=== PATIENT | male | born 1975 | race African-American/Black ===

== ENCOUNTER 2016-10-03 01:00 | Emergency (ER) | payer MEDICAID ==
[2016-10-03] MEDS ORDERED: LORAZEPAM INJ 2 MG/1 ML VIAL IM ONE ×2 (01:18→23:59)
[2016-10-03] MEDS ORDERED: DIPHENHYDRAMINE HCL 50 MG/ML VIAL IM ONE ×2 (01:18→23:59)
[2016-10-03] MEDS ORDERED: HALOPERIDOL LACTATE INJ 5 MG/1 ML VIAL IM ONE ×2 (01:18→23:59)
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
[2016-10-03 02:08] LABS: ABSOLUTE EOSINOPHILS # (AUTO) 0.3 10^3/uL (0.0-0.6); ABSOLUTE LYMPHOCYTES (AUTO) 1.5 10^3/uL (0.5-4.7); ABSOLUTE MONOCYTES (AUTO) 0.6 10^3/uL (0.1-1.4); ABSOLUTE NEUT (AUTO) 3.1 10^3/uL (1.7-8.2); BASOPHILS % (AUTO) 0.7 % (0-2); HEMATOCRIT 39.6 % (37.9-51.0); HEMOGLOBIN 13.4 g/dL (13.5-17.0); HGB HCT DIFFERENCE 0.6; LYMPHOCYTES % (AUTO) 27.2 % (13-45); MEAN CORPUSCULAR HEMOGLOBIN 28.4 pg (27.0-33.4); MEAN CORPUSCULAR HGB CONC 33.9 g/dL (32.0-36.0); MEAN CORPUSCULAR VOLUME 84 fl (80-97); MONOCYTES % (AUTO) 11.5 % (3-13); RED BLOOD COUNT 4.73 10^6/uL (4.35-5.55); RED CELL DISTRIBUTION WIDTH 14.9 % (11.5-14.0); SEGMENTED NEUTROPHILS % (AUTO) 55.6 % (42-78); WHITE BLOOD COUNT 5.5 10^3/uL (4.0-10.5)
[2016-10-03 02:20] LABS: ALANINE AMINOTRANSFERASE 39 U/L (21-72); ALBUMIN 3.7 g/dL (3.5-5.0); ALKALINE PHOSPHATASE 48 U/L (38-126); ANION GAP 9 (5-19); ASPARTATE AMINO TRANSFERASE 32 U/L (17-59); BILIRUBIN,DIRECT 0.1 mg/dL (0.0-0.4); BILIRUBIN,TOTAL 0.3 mg/dL (0.2-1.3); BLOOD UREA NITROGEN 12 mg/dL (7-20); CALCIUM 8.8 mg/dL (8.4-10.2); CARBON DIOXIDE 27 mmol/L (22-30); CHLORIDE 108 mmol/L (98-107); CREATININE RESULT 0.81 mg/dL (0.52-1.25); GLUCOSE 124 mg/dL (75-110); POTASSIUM 4.5 mmol/L (3.6-5.0); TOTAL PROTEIN 5.9 g/dL (6.3-8.2)
[2016-10-03 02:25] LABS: ALCOHOL < 10 mg/dL (NONE DETECTED)
--- NOTE | 2016-10-03 10:23 | EKG REPORT ---
SEVERITY:- ABNORMAL ECG - SINUS RHYTHM PROBABLE LEFT VENTRICULAR HYPERTROPHY ST ELEVATION SUGGESTS PERICARDITIS : Confirmed by: Millicent Vazquez 03-Oct-2016 10:23:38
[2016-10-03 12:32] LABS: APPEARANCE,URINE CLEAR; BILIRUBIN,URINE NEGATIVE (NEGATIVE); GLUCOSE, URINE NEGATIVE (NEGATIVE); KETONES,URINE NEGATIVE (NEGATIVE); LEUKOCYTE ESTERASE,URINE NEGATIVE (NEGATIVE); NITRITE,URINE NEGATIVE (NEGATIVE); PROTEIN,URINE NEGATIVE (NEGATIVE); URINE SPECIFIC GRAVITY 1.014; UROBILINOGEN,URINE NEGATIVE mg/dL (<2.0)
[2016-10-03 12:53] LABS: URINE BARBITURATES SCREEN NEGATIVE; URINE METHADONE SCREEN NEGATIVE; URINE OPIATES LOW NEGATIVE; URINE PHENCYCLIDINE SCREEN NEGATIVE
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
[2016-10-03] MEDS: HALOPERIDOL 5 MG TABLET PO SCH (15:15)
[2016-10-03] MEDS ORDERED: DIAZEPAM 5 MG TABLET PO ONE (16:55)
[2016-10-03] MEDS: DIVALPROEX SODIUM 250 MG TAB.SR.24H PO SCH (17:14)
[2016-10-03] MEDS: BENZTROPINE MESYLATE 1 MG TABLET PO SCH (17:15)
--- NOTE | 2016-10-03 20:33 | ER Document Report ---
Doctor's Note Notes: 10/03/16 20:32 As the rounding physician for our psychiatric patients, I have reviewed the chart, vitals, lab work. Patient has been examined and noted to be stable, I give the patient medication . Mental health will keep patient overnight.
--- NOTE | 2016-10-04 09:22 | ER Document Report ---
Doctor's Note Notes: 10/04/16 21:13 As the rounding physician for our psychiatric patients, I have reviewed the chart, vitals, lab work. Patient has been examined and noted to be agitated intermittently throughout the day was given medication . I'm awaiting disposition regarding mental health
[2016-10-04] MEDS: DIVALPROEX SODIUM 250 MG TAB.SR.24H PO SCH ×2 (09:36→18:42)
[2016-10-04] MEDS: HALOPERIDOL 5 MG TABLET PO SCH ×2 (09:36→21:33)
[2016-10-04] MEDS: BENZTROPINE MESYLATE 1 MG TABLET PO SCH ×2 (09:36→18:42)
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
[2016-10-04] MEDS ORDERED: LORAZEPAM INJ 2 MG/1 ML VIAL IM ONE (14:31)
[2016-10-04] MEDS ORDERED: HALOPERIDOL LACTATE INJ 5 MG/1 ML VIAL IM ONE (14:31)
[2016-10-04] MEDS ORDERED: NICOTINE 14 MG/24 HR PATCH.TD24 TD ONE (14:43)
[2016-10-05] MEDS: DIVALPROEX SODIUM 250 MG TAB.SR.24H PO SCH (09:14)
[2016-10-05] MEDS: HALOPERIDOL 5 MG TABLET PO SCH (09:15)
[2016-10-05] MEDS: BENZTROPINE MESYLATE 1 MG TABLET PO SCH (09:15)
--- NOTE | 2016-10-05 11:19 | ER Document Report ---
Doctor's Note Notes: 10/05/16 11:18 As the rounding physician for our psychiatric patients, I have reviewed the chart, vitals, lab work. Patient has been examined and noted to be stable at this time. He states that he is feeling much better today and realizes that he needs to be compliant with his medications. He states that he is having no thoughts of hurting himself or anyone else. I am awaiting mental health in put today regarding disposition.
[2016-10-05] MEDS ORDERED: HALOPERIDOL DECANOATE INJ 100 MG/1 ML VIAL IM ONE (14:42)
--- NOTE | 2016-10-05 15:53 | ER Document Report ---
ED Psych Disorder / Suicide - General Chief Complaint: Psych Problem Stated Complaint: IVC WITH PAPERS Information source: Patient, Parent, [facility] Records, Outside Facility Records - residential program, and psychiatric provider, [facility] TRAVEL OUTSIDE OF THE [place] IN LAST 30 DAYS: No - HPI Patient complains to provider of: Bizarre behavior Onset: Last week Onset was: Gradual Suicide Risk Factors: Schizophrenia, Substance abuse - residential provider reports patient uses cocaine; however, toxicology was negative Normal mood: Yes Associated symptoms: Normal affect - for this patient, Normal mood - for this patient Similar symptoms previously: Yes Recently seen / treated by doctor: Yes - [facility] last Monday Notes: Conducted check-in on patient who is a 40-year-old male under involuntary commitment at [facility] ED. Patient initially presented with acute psychosis and paranoia. Patient was also reported by his residential program to be hypersexual as evidence by masturbating in public places with no regard for other individuals. Patient thus far has been cooperative taken his medications as prescribed. 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 Patient is noted to except the redirection without incident. [facility] [phone] spoke with mental health binder caser (DUANE) and describes the patient as a "26-year-old black male and a 41-year-old body." medicine and health service manager described patient's current presentation to include standing and pacing and wrapping. collision center manager reports he is in agreement that that is normal for the patient. This clinician discussed with manager exchange the medications administered here in the department and that the immediate crisis which was presented has resolved. Therefore the patient no longer meets criteria for an involuntary commitment. Business Development Manager did express concerns that last medication will not be efficacious and states he will take him to [facility] for "fine tuning." Patient is alert and oriented. Mood is euthymic with normal affect. Patient denies suicidal/homicidal ideations, intent, plan, means. Patient denies A/VH. There were times where patient appeared to be responding to internal stimuli by occasionally laughing or smiling, but delusions were not noted. Thought processes were organized. Conversational speech was WNL for this patient for prosody. Intellectual abilities were estimated within low average range. Attention and focus were fair. Insight, judgment, impulse control were fair. Unspecified schizophrenia or psychotic related disorder R/O IDD Patient is psychiatrically cleared and recommended for rescind IVC. Patient's initial crisis has resolved as evidence by the absence of hypersexuality, in the absence of paranoia. Patient has eaten all meals and showered. Patient has accepted redirection without incident. Patient has taken his medications as prescribed's as evidence by a therapeutic Depakote level. Discussing with patient the importance of engaging in therapy, patient is able to verbalize that he will attend counseling and work with his therapist to identify coping skills to manage his psychosis. Patient is encouraged to follow-up with his outpatient provider. I consulted with Dr. Weems in regards to the care and management of this patient. - Related Data Allergies/Adverse Reactions: No Known Allergies Allergy (Unverified 02/04/16 12:28) Home Medications: Current Home Medications Benztropine Mesylate [Cogentin 1 mg Tablet] 2 mg PO BID 10/03/16 [History] Clonazepam [Klonopin] 0.5 mg PO QAM 10/03/16 [History] Clonazepam [Klonopin] 1 mg PO QHS 10/03/16 [History] Divalproex Sodium [Depakote ER 500 mg Tab.sr] 1,500 mg PO QHS 10/03/16 [History] Haloperidol 10 mg PO QHS 10/03/16 [History] Haloperidol Decanoate 2 ml IM [id number] 10/03/16 [History] Olanzapine [Zyprexa] 10 mg PO BID 10/03/16 [History] Trihexyphenidyl HCl 2 mg PO BID 10/03/16 [History] Past Medical History - General Information source: Patient - Social History Smoking Status: Never Smoker Frequency of alcohol use: None Drug Abuse: None Lives with: Other Family History: Reviewed & Not Pertinent Psychiatric Medical History: Reports: Hx Bipolar Disorder, Hx Schizophrenia - Immunizations Hx Diphtheria, Pertussis, Tetanus Vaccination: Yes Physical Exam - Vital signs Vitals: Temp Pulse Resp BP Pulse Ox 97.9 F 84 18 117/66 95 10/03/16 02:35 10/03/16 02:35 10/03/16 02:35 10/03/16 02:35 10/03/16 02:35 Course - Vital Signs Vital signs: Temp Pulse Resp BP Pulse Ox 97.7 F 70 18 143/83 H 97 10/05/16 07:37 10/05/16 07:37 10/05/16 07:37 10/05/16 07:37 10/05/16 07:37 - Laboratory Result Diagrams: 10/03/16 01:50 10/03/16 01:50 Laboratory results interpreted by me: 10/03/16 10/03/16 01:50 01:50 Hgb 13.4 L RDW 14.9 H Plt Count 122 L Chloride 108 H Glucose 124 H Total Protein 5.9 L Salicylates < 1.0 L Acetaminophen < 10 L Discharge - Discharge Clinical Impression: Aggressive behavior, Paranoid delusion Condition: Good Disposition: HOME, SELF-CARE Additional Instructions: Schizophrenia Schizophrenia is a chemical disorder that affects how the brain functions. The exact cause is unknown, but it tends to run in families. It is NOT caused by emotional trauma. Schizophrenia causes disordered thinking, including unusual beliefs and inability to "process" happenings around the patient. Patients with schizophrenia benefit greatly from medicine. These medicines are called antipsychotics. Never stop the medicine without the doctor 's approval. Counselling may help the patient deal with his disease. Schizophrenics require a very ordered environment. Stresses and sudden changes may bring out symptoms. Drugs and alcohol abuse may become problems. Contact the counsellor or crisis line if there are thoughts of suicide or of harming others, or if you become aware of unusual thoughts or beliefs It is recommended U follow-up with her outpatient provider and immediately engage in counseling. Please take all of your medications as prescribed. Please return to the emergency room if your symptoms should worsen. Referrals: [facility] [Provider Group] - Follow up as needed
[2016-10-05 17:05] VITALS: BP 142/86
== END 2016-10-05 17:18 | disposition home or self-care (01) ==
LOC: ER 01:00
DX: F91.1 Conduct disorder, childhood-onset type (principal); F22 Delusional disorders
CPT/HCPCS: 93005; 99285; 96372; 36415; 80307 ×4; 85025; 80053; 81001; 80164; 93010; J3490 ×7; J1631; J1200; J1630; J2060

== ENCOUNTER 2017-05-01 12:36 | Inpatient (IN) | payer MEDICAID, OTHER ==
[2017-05-01] MEDS ORDERED: ACETAMINOPHEN 325 MG TABLET PO ONE (14:05)
[2017-05-01] MEDS ORDERED: IBUPROFEN 800 MG TABLET PO ONE (14:05)
--- NOTE | 2017-05-01 14:06 | ER Document Report ---
HPI - HPI Patient complains to provider of: bilateral posterior thigh cramps Onset: Other - today Pain Level: 5 Context: 41-year-old male bilpolar , schizophrenic, complaining of bilateral posterior thigh muscles and cramps into his buttocks for 2 days, states it is from walking so much in the rain months ago. NO vomiting or diarrhea. Hurts to walk. Wants muscle rub or bengay for it. Lives in assisted. Past Medical History - General Information source: Patient - Social History Smoking Status: Current Every Day Smoker Frequency of alcohol use: None Drug Abuse: Marijuana Lives with: Other - assisted Family History: Reviewed & Not Pertinent Psychiatric Medical History: Reports: Hx Bipolar Disorder, Hx Schizophrenia - Immunizations Hx Diphtheria, Pertussis, Tetanus Vaccination: Yes Vertical Provider Document - CONSTITUTIONAL Agree With Documented VS: Yes Exam Limitations: No Limitations - INFECTION CONTROL TRAVEL OUTSIDE OF THE [place] IN LAST 30 DAYS: No - HEENT HEENT: Normal ENT Exam - NECK Neck: Supple - RESPIRATORY Respiratory: Breath Sounds Normal, No Respiratory Distress O2 Sat by Pulse Oximetry: 100 - CARDIOVASCULAR Cardiovascular: Regular Rhythm, Tachycardia - GI/ABDOMEN Gastrointestinal: Abdomen Soft, Abdomen Non-Tender - MUSCULOSKELETAL/EXTREMETIES Musculoskeletal/Extremeties: MAEW, FROM, Tender - posterior upper posterior thighs, no erythema or tense muscles. - NEURO Level of Consciousness: Awake, Alert Motor/Sensory: No Motor Deficit, No Sensory Deficit - DERM Integumentary: Warm, Dry, No Rash Course - Re-evaluation Re-evalutation: 05/01/17 16:21 pt pain is decreased, still has posterior 05/01/17 16:[address] Clint avila because of the chemistry results the CPK is having to be diluted a third time so I am suspecting rhabdomyolysis. I will order a liter of normal saline. His BUN and creatinine are normal. White count is 16,000 without a shift. He takes Haldol, divalproex, clonazepam, and olanzapine. Dr. Elias said to call him back with the CPK result. 05/01/17 16:33 CPK 26,533, dr. diop states pt needs to be admitted. Called dr. naidu, and he has to call me back. 05/01/17 16:35 05/01/17 16:39 dr. naidu will admit to medical floor for rhabdomyolysis. rock worker says he needs a nicotine patch. john fuentespard [phone] [employer], I spoke with him. He does not know of any extra activity that could have caused this. But he does walk from [employer] to the mall. 05/01/17 16:42 - Vital Signs Vital signs: Temp Pulse Resp BP Pulse Ox 99.9 F 117 H 20 139/90 H 100 05/01/17 12:47 05/01/17 12:47 05/01/17 12:47 05/01/17 12:47 05/01/17 12:47 - Laboratory Result Diagrams: 05/01/17 15:15 05/01/17 15:15 Discharge - Discharge Clinical Impression: RHABDOMYOLYSIS, Muscle cramps Condition: Good Disposition: ADMITTED INPATIENT Admitting Provider: Hospitalist Unit Admitted: Medical Floor
[2017-05-01] MEDS ORDERED: KETOROLAC TROMETHAMINE INJ/PF 30 MG/1 ML SDV IV ONE (14:19)
[2017-05-01] MEDS ORDERED: NORMAL SALINE 1000 ML 1,000 ML IV ONE ×3 (14:19→16:46)
[2017-05-01 15:33] LABS: ABSOLUTE BASOPHILS # (AUTO) 0.1 10^3/uL (0.0-0.2); ABSOLUTE LYMPHOCYTES (AUTO) 1.4 10^3/uL (0.5-4.7); ABSOLUTE MONOCYTES (AUTO) 2.3 10^3/uL (0.1-1.4); ABSOLUTE NEUT (AUTO) 12.9 10^3/uL (1.7-8.2); BASOPHILS % (AUTO) 0.4 % (0-2); HEMOGLOBIN 14.8 g/dL (13.5-17.0); HGB HCT DIFFERENCE 0.4; LYMPHOCYTES % (AUTO) 8.6 % (13-45); MEAN CORPUSCULAR HEMOGLOBIN 27.7 pg (27.0-33.4); MEAN CORPUSCULAR HGB CONC 33.7 g/dL (32.0-36.0); MEAN CORPUSCULAR VOLUME 82 fl (80-97); MONOCYTES % (AUTO) 13.6 % (3-13); RED BLOOD COUNT 5.36 10^6/uL (4.35-5.55); RED CELL DISTRIBUTION WIDTH 14.8 % (11.5-14.0); SEGMENTED NEUTROPHILS % (AUTO) 77.4 % (42-78); WHITE BLOOD COUNT 16.7 10^3/uL (4.0-10.5)
[2017-05-01 15:59] LABS: ALANINE AMINOTRANSFERASE 105 U/L (21-72); ALBUMIN 3.7 g/dL (3.5-5.0); ALKALINE PHOSPHATASE 43 U/L (38-126); ANION GAP 9 (5-19); ASPARTATE AMINO TRANSFERASE 455 U/L (17-59); BILIRUBIN,DIRECT 0.3 mg/dL (0.0-0.4); BILIRUBIN,TOTAL 0.8 mg/dL (0.2-1.3); BLOOD UREA NITROGEN 22 mg/dL (7-20); CALCIUM 8.9 mg/dL (8.4-10.2); CARBON DIOXIDE 27 mmol/L (22-30); CHLORIDE 101 mmol/L (98-107); CREATININE RESULT 1.06 mg/dL (0.52-1.25); GLUCOSE 102 mg/dL (75-110); MAGNESIUM 2.3 mg/dL (1.6-2.3); POTASSIUM 4.5 mmol/L (3.6-5.0); SODIUM 136.9 mmol/L (137-145); TOTAL PROTEIN 6.3 g/dL (6.3-8.2)
[2017-05-01 16:28] LABS: CREATINE KINASE 26533 U/L (55-170)
[2017-05-01] MEDS ORDERED: NICOTINE 21 MG/24 HR PATCH.TD24 TD ONE (16:45)
--- NOTE | 2017-05-01 18:11 | PDOC H&P ---
History of Present Illness Admission Date/PCP: 05/01/17 16:43 Patient complains of: Pt states that he is thirsty. History of Present Illness: MINA SMALL is a 41 year old male presents to the hospital with complaint of leg cramping. During my encounter pt states that he needed some water from [facility]. So he was contacted to this bag. Pt states that he has some leg cramping from walking so much in the rain months ago. Past Medical History Medical History: Other - Pt not sure of medical condition. Psychiatric Medical History: Reports: Bipolar Disorder Past Surgical History Past Surgical History: Reports: None Social History Information Source: Patient Lives with: Other - [facility] Smoking Status: Current Every Day Smoker Family History Family History: Reviewed & Not Pertinent Parental Family History Reviewed: Yes Children Family History Reviewed: Yes Sibling(s) Family History Reviewed.: Yes Medication/Allergy Allergies/Adverse Reactions: No Known Allergies Allergy (Verified 05/01/17 12:46) Review of Systems Constitutional: ABSENT: chills, fever(s), headache(s), weight gain, weight loss Eyes: ABSENT: visual disturbances Ears: ABSENT: hearing changes Cardiovascular: ABSENT: chest pain, dyspnea on exertion, edema, orthropnea, palpitations Respiratory: ABSENT: cough, hemoptysis Gastrointestinal: ABSENT: abdominal pain, constipation, diarrhea, hematemesis, hematochezia, nausea, vomiting Genitourinary: ABSENT: dysuria, hematuria Musculoskeletal: ABSENT: joint swelling Integumentary: ABSENT: rash, wounds Neurological: ABSENT: abnormal gait, abnormal speech, confusion, dizziness, focal weakness, syncope Endocrine: ABSENT: cold intolerance, heat intolerance, polydipsia, polyuria Hematologic/Lymphatic: ABSENT: easy bleeding, easy bruising Physical Exam Vital Signs: Temp Pulse Resp BP Pulse Ox 99.0 F 108 H 18 137/85 H 100 05/01/17 15:09 05/01/17 15:09 05/01/17 15:09 05/01/17 15:09 05/01/17 16:45 General appearance: PRESENT: no acute distress, morbidly obese Head exam: PRESENT: atraumatic, normocephalic Eye exam: PRESENT: conjunctiva pink, EOMI. ABSENT: scleral icterus Ear exam: PRESENT: normal external ear exam Mouth exam: PRESENT: moist, tongue midline Neck exam: ABSENT: carotid bruit, JVD, lymphadenopathy, thyromegaly Respiratory exam: PRESENT: clear to auscultation faheem. ABSENT: rales, rhonchi, wheezes Cardiovascular exam: PRESENT: RRR. ABSENT: diastolic murmur, rubs, systolic murmur Pulses: PRESENT: normal dorsalis pedis pul Vascular exam: PRESENT: normal capillary refill GI/Abdominal exam: PRESENT: normal bowel sounds, soft. ABSENT: distended, guarding, mass, organolmegaly, rebound, tenderness Rectal exam: PRESENT: deferred Extremities exam: PRESENT: full ROM. ABSENT: calf tenderness, clubbing, pedal edema Neurological exam: PRESENT: alert, awake, oriented to person, CN II-XII grossly intact. ABSENT: motor sensory deficit Psychiatric exam: PRESENT: appropriate affect, normal mood. ABSENT: homicidal ideation, suicidal ideation Skin exam: PRESENT: dry, intact, warm. ABSENT: cyanosis, rash Assessment & Plan - Diagnosis (1) Rhabdomyolysis Qualifiers: Rhabdomyolysis type: non-traumatic Qualified Code(s): M62.82 - Rhabdomyolysis Is this a current diagnosis for this admission?: Yes Plan: Not sure of cause. Will place on IVF of 200cc/hr. CPK pending. (2) Bipolar 1 disorder Is this a current diagnosis for this admission?: Yes Plan: Will have to obtain home medications. (3) Schizophrenic disorder Is this a current diagnosis for this admission?: Yes Plan: Will have to obtain home medications. (4) Hepatitis Is this a current diagnosis for this admission?: Yes Plan: Most likely Secondary to Muscle Breakdown: Will check LFTs, U/S of liver. LFT elevation could be secondary to the muscle breakdown. Will have to monitor trend. (5) Muscle cramps Is this a current diagnosis for this admission?: Yes Plan: Secondary to Rhabdomyolysis: Supportive care. (6) DVT prophylaxis Is this a current diagnosis for this admission?: Yes Plan: SCDs - Time Time Spent: 30 to 50 Minutes
--- NOTE | 2017-05-01 18:34 | RADIOLOGY REPORT (SQ) ---
EXAM DESCRIPTION: CHEST PA/LAT COMPLETED DATE/TIME: 05/01/2017 6:19 pm REASON FOR STUDY: Elevated WBC COMPARISON: None. EXAM PARAMETERS: NUMBER OF VIEWS: two views TECHNIQUE: Digital Frontal and Lateral radiographic views of the chest acquired. RADIATION DOSE: NA LIMITATIONS: none FINDINGS: LUNGS AND PLEURA: No opacities, masses or pneumothorax. No pleural effusion. MEDIASTINUM AND HILAR STRUCTURES: No masses or contour abnormalities. HEART AND VASCULAR STRUCTURES: Heart normal size. No evidence for failure. BONES: No acute findings. HARDWARE: None in the chest. OTHER: No other significant finding. IMPRESSION: NO SIGNIFICANT RADIOGRAPHIC FINDING IN THE CHEST. TECHNICAL DOCUMENTATION: JOB ID: [id number] [employer]- All Rights Reserved
[2017-05-01] MEDS: NORMAL SALINE 1000 ML 1,000 ML IV PRN (19:17)
[2017-05-01] MEDS ORDERED: DIVALPROEX SODIUM 250 MG TABLET.DR PO ONE (23:00)
[2017-05-01] MEDS ORDERED: CLONAZEPAM 1 MG PO SCH (23:30)
[2017-05-01] MEDS ORDERED: DIVALPROEX SODIUM 1500 MG PO SCH (23:30)
[2017-05-01] MEDS ORDERED: CLONAZEPAM 1 MG TABLET PO ONE (23:45)
[2017-05-01] MEDS ORDERED: BENZTROPINE MESYLATE 1 MG TABLET PO ONE (23:45)
[2017-05-02] MEDS: NORMAL SALINE 1000 ML 1,000 ML IV PRN ×2 (02:23→20:28)
[2017-05-02 07:45] LABS: ALANINE AMINOTRANSFERASE 76 U/L (21-72); ALBUMIN 2.7 g/dL (3.5-5.0); ALKALINE PHOSPHATASE 38 U/L (38-126); ASPARTATE AMINO TRANSFERASE 268 U/L (17-59); BILIRUBIN,DIRECT 0.3 mg/dL (0.0-0.4); BILIRUBIN,TOTAL 0.6 mg/dL (0.2-1.3); BLOOD UREA NITROGEN 21 mg/dL (7-20); CALCIUM 7.6 mg/dL (8.4-10.2); CHOLESTEROL 104.11 mg/dL (0-200); CREATININE RESULT 1.03 mg/dL (0.52-1.25); Direct HDL 31 mg/dL (>40); GLUCOSE 79 mg/dL (75-110); MAGNESIUM 2.3 mg/dL (1.6-2.3); POTASSIUM 4.3 mmol/L (3.6-5.0); TOTAL PROTEIN 4.8 g/dL (6.3-8.2); TRIGLYCERIDES 55 mg/dL (<150)
[2017-05-02 07:55] LABS: DIRECT LDL 42 mg/dL (<100)
[2017-05-02 07:56] LABS: ABSOLUTE EOSINOPHILS # (AUTO) 0.1 10^3/uL (0.0-0.6); ABSOLUTE LYMPHOCYTES (AUTO) 1.7 10^3/uL (0.5-4.7); ABSOLUTE MONOCYTES (AUTO) 1.6 10^3/uL (0.1-1.4); ABSOLUTE NEUT (AUTO) 8.4 10^3/uL (1.7-8.2); BASOPHILS % (AUTO) 0.3 % (0-2); EOSINOPHILS % (AUTO) 0.5 % (0-6); HEMATOCRIT 36.6 % (37.9-51.0); HGB HCT DIFFERENCE -0.3; MEAN CORPUSCULAR HEMOGLOBIN 27.4 pg (27.0-33.4); MEAN CORPUSCULAR HGB CONC 33.1 g/dL (32.0-36.0); MEAN CORPUSCULAR VOLUME 83 fl (80-97); MONOCYTES % (AUTO) 13.4 % (3-13); RED BLOOD COUNT 4.42 10^6/uL (4.35-5.55); SEGMENTED NEUTROPHILS % (AUTO) 71.8 % (42-78); WHITE BLOOD COUNT 11.8 10^3/uL (4.0-10.5)
[2017-05-02 07:57] LABS: HEMOGLOBIN 12.1 g/dL (13.5-17.0)
[2017-05-02 08:06] LABS: ANION GAP 7 (5-19); CARBON DIOXIDE 25 mmol/L (22-30); CHLORIDE 108 mmol/L (98-107); SODIUM 139.9 mmol/L (137-145)
[2017-05-02 08:15] LABS: THYROID STIMULATING HORMONE 1.4 uIU/mL (0.47-4.68)
[2017-05-02 08:20] LABS: CREATINE KINASE 14719 U/L (55-170)
--- NOTE | 2017-05-02 11:55 | RADIOLOGY REPORT (SQ) ---
EXAM DESCRIPTION: U/S ABDOMEN COMPLETE W/O DOP COMPLETED DATE/TIME: 05/02/2017 11:45 am REASON FOR STUDY: Elevated hepatitis COMPARISON: None. TECHNIQUE: Dynamic and static grayscale images acquired of the abdomen and recorded on PACS. Additio pau selected color Doppler and spectral images recorded. LIMITATIONS: None. FINDINGS: PANCREAS: Not well seen. LIVER: 15.6 cm. Normal echotexture LIVER VASCULATURE: Normal directional flow of the main portal vein and hepatic veins. GALLBLADDER: No stones. Normal wall thickness. No pericholecystic fluid. ULTRASOUND-DETECTED SAEZ'S SIGN: Negative. INTRAHEPATIC DUCTS AND COMMON DUCT: CBD and intrahepatic ducts normal caliber. No filling defects. INFERIOR VENA CAVA: Normal flow. AORTA: No aneurysm. RIGHT KIDNEY: Normal size, 11.1 cm. Normal echogenicity. No solid or suspicious masses. No hyd ronephrosis. No calcifications. LEFT KIDNEY: Normal size, 9 cm. Normal echogenicity. No solid or suspicious masses. No hydrone phrosis. No calcifications. SPLEEN: Size, 9.1 cm. No masses. PERITONEAL AND PLEURAL SPACES: No ascites or effusions. OTHER: No other significant finding. IMPRESSION: NORMAL ABDOMINAL ULTRASOUND. TECHNICAL DOCUMENTATION: JOB ID: [id number] [employer] ([employer] All Rights Reserved
--- NOTE | 2017-05-02 14:13 | Physician Advisory Note ---
Physician Advisor ProgressNote .: Pursuant to the [facility], I have reviewed the medical record for this patient. Physician Advisor Statement: Please consider documenting, if you agree: 1. "Mild acute hyponatremia, likely to due intravascular volume depletion" ( BUN up initially too) 2. Medical necessity: "Patient continues to need hospitalization due to severe rhabdomyolysis which could cause assisted kidney damage if not tx'd in hospital with continued aggressive IVF, close monitoring of renal fn & lytes", for example. 3. Could Zyprexa 10mg bid pt on chronically be a/the cause of pt's rhabdo? Status: Typically, rhabdo would be Obs to start, changing to Inpt next day if still needing hospital. However, in this case, appropriate to start as Inpatient: Medicaid pt's CPK was so incredibly high to start with that it could be easily expected at time of attending first eval to need at least 48hrs of hospital care & monitoring of lytes/renal fn/CPKs while giving aggressive IVF to protect kidneys from senior living damage. As expected, CPK still too high today at 14,719, to safely d/ c pt. CK
[2017-05-02] MEDS ORDERED: NA PHOS,M-B/NA PHOS,DI-BA (ADULT) 133 ML ENEMA PR ONE (17:30)
[2017-05-02] MEDS ORDERED: DIVALPROEX SODIUM 250 MG TABLET.DR PO SCH (22:00)
[2017-05-02] MEDS ORDERED: CLONAZEPAM 1 MG TABLET PO SCH (22:00)
[2017-05-02] MEDS ORDERED: BENZTROPINE MESYLATE 1 MG TABLET PO SCH (22:00)
[2017-05-03 05:24] LABS: ALANINE AMINOTRANSFERASE 72 U/L (21-72); ALBUMIN 2.7 g/dL (3.5-5.0); ALKALINE PHOSPHATASE 39 U/L (38-126); ANION GAP 7 (5-19); ASPARTATE AMINO TRANSFERASE 202 U/L (17-59); BILIRUBIN,DIRECT 0.2 mg/dL (0.0-0.4); BILIRUBIN,TOTAL 0.5 mg/dL (0.2-1.3); BLOOD UREA NITROGEN 17 mg/dL (7-20); CALCIUM 7.8 mg/dL (8.4-10.2); CARBON DIOXIDE 25 mmol/L (22-30); CHLORIDE 109 mmol/L (98-107); CREATININE RESULT 0.79 mg/dL (0.52-1.25); GLUCOSE 85 mg/dL (75-110); MAGNESIUM 2.5 mg/dL (1.6-2.3); POTASSIUM 4.3 mmol/L (3.6-5.0); SODIUM 140.7 mmol/L (137-145); TOTAL PROTEIN 4.8 g/dL (6.3-8.2)
[2017-05-03 05:46] LABS: CREATINE KINASE 10772 U/L (55-170)
--- NOTE | 2017-05-03 06:36 | PDOC PROGRESS REPORT ---
Subjective Progress Note for:: 05/02/17 Subjective:: Patient is a 41 year old male who presented with complaint of leg pain and was found to be in rhabdo. Patient states he is doing well. He later on stated he was constipated and requested a fleets enema. Physical Exam Vital Signs: Temp Pulse Resp BP Pulse Ox 98.2 F 94 20 133/61 H 97 05/02/17 15:46 05/02/17 15:46 05/02/17 15:46 05/02/17 15:46 05/02/17 15:46 Intake & Output 05/01/17 05/02/17 05/03/17 06:59 06:59 06:59 Intake Total 1230 120 Balance 1230 120 Weight 112.6 kg General appearance: PRESENT: no acute distress, well-developed, well-nourished Head exam: PRESENT: atraumatic, normocephalic Eye exam: PRESENT: conjunctiva pink, EOMI, PERRLA. ABSENT: scleral icterus Ear exam: PRESENT: normal external ear exam Mouth exam: PRESENT: moist, tongue midline Neck exam: ABSENT: carotid bruit, JVD, lymphadenopathy, thyromegaly Respiratory exam: PRESENT: clear to auscultation faheem. ABSENT: rales, rhonchi, wheezes Cardiovascular exam: PRESENT: RRR. ABSENT: diastolic murmur, rubs, systolic murmur Pulses: PRESENT: normal dorsalis pedis pul Vascular exam: PRESENT: normal capillary refill GI/Abdominal exam: PRESENT: normal bowel sounds, soft. ABSENT: distended, guarding, mass, organolmegaly, rebound, tenderness Rectal exam: PRESENT: deferred Extremities exam: PRESENT: full ROM. ABSENT: calf tenderness, clubbing, pedal edema Neurological exam: PRESENT: alert, awake, oriented to person, oriented to place , oriented to time, oriented to situation, CN II-XII grossly intact. ABSENT: motor sensory deficit Psychiatric exam: PRESENT: appropriate affect, normal mood. ABSENT: homicidal ideation, suicidal ideation Skin exam: PRESENT: dry, intact, warm. ABSENT: cyanosis, rash Results Laboratory Results: 05/02/17 07:21 05/02/17 07:21 05/02/17 05/02/17 05/02/17 07:21 07:21 07:21 WBC 11.8 H RBC 4.42 Hgb 12.1 L D Hct 36.6 L MCV 83 MCH 27.4 MCHC 33.1 RDW 15.0 H Plt Count 110 L Seg Neutrophils % 71.8 Lymphocytes % 14.0 Monocytes % 13.4 H Eosinophils % 0.5 Basophils % 0.3 Absolute Neutrophils 8.4 H Absolute Lymphocytes 1.7 Absolute Monocytes 1.6 H Absolute Eosinophils 0.1 Absolute Basophils 0.0 Sodium 139.9 Potassium 4.3 Chloride 108 H Carbon Dioxide 25 Anion Gap 7 BUN 21 H Creatinine 1.03 Est GFR ( Amer) > 60 Est GFR (Non-Af Amer) > 60 Glucose 79 Calcium 7.6 L Magnesium 2.3 Total Bilirubin 0.6 AST 268 H ALT 76 H Alkaline Phosphatase 38 Total Protein 4.8 L Albumin 2.7 L Triglycerides 55 Cholesterol 104.11 LDL Cholesterol Direct 42 VLDL Cholesterol 11.0 HDL Cholesterol 31 L TSH 1.40 Free T4 1.62 05/01/17 05/01/17 05/02/17 18:52 18:52 01:00 Creatine Kinase 38426 H 15916 H Troponin I < 0.012 05/02/17 05/02/17 05/02/17 01:00 07:21 07:21 Creatine Kinase 64182 H Troponin I < 0.012 < 0.012 Impressions: Chest X-Ray 05/01/17 00:00 IMPRESSION: NO SIGNIFICANT RADIOGRAPHIC FINDING IN THE CHEST. Abdomen Ultrasound 05/02/17 00:00 IMPRESSION: NORMAL ABDOMINAL ULTRASOUND. Assessment & Plan - Diagnosis (1) Rhabdomyolysis Qualifiers: Rhabdomyolysis type: non-traumatic Qualified Code(s): M62.82 - Rhabdomyolysis Is this a current diagnosis for this admission?: Yes Plan: Possible do to the zyprexa a atypical antipsychotic. This medication is being held and patient being aggressively hydrated at 200cc/hr. Will ask psychology if they recommend anything different in place of this medication or possibly decreasing the does if they believe that this medication may have resulted in his condition. [place] gradually [place] [address]12 to [address]. Renal function stable. Will conitnue to monitor closely. (2) Bipolar 1 disorder Is this a current diagnosis for this admission?: Yes Plan: Conitnue current medications with the exception of zyprexa. Psychology consulted. Recommendations appreciated. (3) DVT prophylaxis Is this a current diagnosis for this admission?: Yes Plan: SCD. (4) Hepatitis Is this a current diagnosis for this admission?: Yes Plan: Acute, secondary to rhabdo. Ultrasound of liver was normal. LFTs are trending down. AST 455 now 268 ALT 105 now 76. (5) Muscle cramps Is this a current diagnosis for this admission?: Yes Plan: Due to rhabdo and dehydration now improving. (6) Schizophrenic disorder Is this a current diagnosis for this admission?: Yes Plan: Continue current medications. Will consult psychology to make sure no adjustments to his medications are needed. (7) Constipation Is this a current diagnosis for this admission?: Yes Plan: No bowel movement in 3 days. Patient given a fleet enema. - Time Time Spent with patient: Less than 15 minutes Anticipated discharge: Other - retirement Within: Other - Inpatient Certification Medical Necessity: Significant Comorbidiites Make Outpatient Treatment Too Risky , Need For IV Fluids
[2017-05-03] MEDS: NORMAL SALINE 1000 ML 1,000 ML IV PRN (07:46)
[2017-05-03 15:35] VITALS: BP 132/77
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
--- NOTE | 2017-05-03 22:03 | PDOC DISCHARGE SUMMARY ---
General - Admit/Disc Date/PCP Admission Date/Primary Care Provider: 05/01/17 16:43 Discharge Date: 05/03/17 - Discharge Diagnosis (1) Rhabdomyolysis Is this a current diagnosis for this admission?: Yes (2) Bipolar 1 disorder Is this a current diagnosis for this admission?: Yes (3) DVT prophylaxis Is this a current diagnosis for this admission?: Yes (4) Hepatitis Is this a current diagnosis for this admission?: Yes (5) Muscle cramps Is this a current diagnosis for this admission?: Yes (6) Schizophrenic disorder Is this a current diagnosis for this admission?: Yes (7) Constipation Is this a current diagnosis for this admission?: Yes - Additional Information Home Medications: Benztropine Mesylate [Cogentin 1 mg Tablet] 2 mg PO AC 05/01/17 Benztropine Mesylate [Cogentin 1 mg Tablet] 4 mg PO QHS 05/01/17 Clonazepam 0.5 mg PO [id number] 05/01/17 Clonazepam 1 mg PO QHS 05/01/17 Divalproex Sodium 1,500 mg PO QHS 05/01/17 Haloperidol [Haldol 5 mg Tablet] 10 mg PO BID 05/01/17 History of Present Illness History of Present Illness: MINA SMLAL is a 41 year old male presenting with complaint of leg cramps. Patient found to be in rhabdo. Patient was admitted and given aggressive IV fluid resuscitation. Hospital Course Hospital Course: Patient presented with severe muscle pain. He was found to have rhabdo with CPK greater than 20,000 but is now in the 10,000. Patient renal function remained stable despite the CPK being so elevated. Patient LFTS were however affected. US or the liver was normal and LFTs were gradually trending down. Patient CPK has been trending down nicely with fluids. Patient rhabdo thought to be related to zyprexa which was discontinued. He was however continued on the remaining of his psychiatric medications. Patient did complain of constipation and given a fleet enema. Patient was being agitated being in the hospital stating that all we are doing is giving him a bump of IV fluids and sticking everyday. Patient states he would like to go home. He states he is capable to drinking 1-2 liters of water at home. He would like to take the pitcher from the hospital home with him so that he can make sure that he is taking the right amount. Patient states he feels fine. He can walk without pain. Physical Exam Vital Signs: Temp Pulse Resp BP Pulse Ox 98.8 F 88 20 132/77 H 96 05/03/17 15:31 05/03/17 15:31 05/03/17 15:31 05/03/17 15:31 05/03/17 15:31 Intake & Output 05/02/17 05/03/17 05/04/17 06:59 06:59 06:59 Intake Total 1230 4600 Output Total 420 Balance 1230 4180 Weight 112.6 kg 113.5 kg General appearance: PRESENT: no acute distress, obese Head exam: PRESENT: normocephalic Eye exam: PRESENT: EOMI. ABSENT: scleral icterus Ear exam: PRESENT: normal external ear exam Mouth exam: PRESENT: moist Neck exam: ABSENT: carotid bruit, JVD, lymphadenopathy, thyromegaly Respiratory exam: PRESENT: clear to auscultation faheem. ABSENT: rales, rhonchi, wheezes Cardiovascular exam: PRESENT: RRR. ABSENT: diastolic murmur, rubs, systolic murmur Pulses: PRESENT: normal dorsalis pedis pul Vascular exam: PRESENT: normal capillary refill GI/Abdominal exam: PRESENT: normal bowel sounds, soft. ABSENT: distended, guarding, mass, organolmegaly, rebound, tenderness Rectal exam: PRESENT: deferred Extremities exam: PRESENT: full ROM. ABSENT: calf tenderness, clubbing, pedal edema Neurological exam: PRESENT: alert, awake, oriented to person, oriented to place , oriented to time, oriented to situation, CN II-XII grossly intact. ABSENT: motor sensory deficit Psychiatric exam: PRESENT: agitated, flat affect. ABSENT: homicidal ideation, suicidal ideation Skin exam: PRESENT: dry, intact, warm. ABSENT: cyanosis, rash Results Laboratory Results: 05/02/17 07:21 05/03/17 04:56 05/03/17 04:56 Sodium 140.7 Potassium 4.3 Chloride 109 H Carbon Dioxide 25 Anion Gap 7 BUN 17 Creatinine 0.79 Est GFR ( Amer) > 60 Est GFR (Non-Af Amer) > 60 Glucose 85 Calcium 7.8 L Magnesium 2.5 H Total Bilirubin 0.5 AST 202 H ALT 72 Alkaline Phosphatase 39 Total Protein 4.8 L Albumin 2.7 L 05/01/17 05/01/17 05/02/17 18:52 18:52 01:00 Creatine Kinase 34342 H 20535 H Troponin I < 0.012 05/02/17 05/02/17 05/02/17 01:00 07:21 07:21 Creatine Kinase 91610 H Troponin I < 0.012 < 0.012 05/03/17 04:56 Creatine Kinase 90837 H Troponin I Impressions: Chest X-Ray 05/01/17 00:00 IMPRESSION: NO SIGNIFICANT RADIOGRAPHIC FINDING IN THE CHEST. Abdomen Ultrasound 05/02/17 00:00 IMPRESSION: NORMAL ABDOMINAL ULTRASOUND. Qualifiers PATEINT BEING DISCHARGED WITH ANY OF THE FOLLOWING DIAGNOSIS?: No Plan Discharge Plan: Patient being discharge home. Patient encouraged to drink water 1-2 liters and follow up for labs in 1 week. Time Spent: Less than 30 Minutes
== END 2017-05-03 16:40 | disposition hospice, home (50) | DRG 558 ==
LOC: ER 12:36 → EH 16:43 → 4N 21:15
PROVIDERS: ADMIT Emergency Medicine; ATTEND Emergency Medicine
DX: M62.82 Rhabdomyolysis (principal); B17.9 Acute viral hepatitis, unspecified; T43.595A Adverse effect of other antipsychotics and neuroleptics, initial encounter; F31.9 Bipolar disorder, unspecified; F20.9 Schizophrenia, unspecified; K59.00 Constipation, unspecified; F17.210 Nicotine dependence, cigarettes, uncomplicated; Z79.899 Other long term (current) drug therapy
CPT/HCPCS: 36415; 71020; 76700; 80053; 80061; 80074; 82550; 83735; 84439; 84443; 84484; 85025; 96361; 96374; 99285; J1885; J7030

== ENCOUNTER 2017-05-07 11:19 | Emergency (ER) | payer MEDICAID ==
[2017-05-07 11:30] VITALS: BP 120/81
[2017-05-07] MEDS ORDERED: ACETAMINOPHEN 325 MG TABLET PO ONE (12:29)
--- NOTE | 2017-05-07 12:35 | ER Document Report ---
ED Neck/Back Problem - General Chief Complaint: Back Pain Stated Complaint: BACK PAIN Time Seen by Provider: 05/07/17 12:16 Mode of Arrival: Ambulatory Information source: Patient Notes: 41-year-old male presents to ED for complaint of continued low back pain. He states he has been drinking his liter of water like he was instructed and he is still having back pain. States his parents rubs some alcohol and BenGay on his back and he was having a hard time getting up and moving around so they had him come back to the hospital to get checked out. He states he does not want any IV fluids but he will agree to have some labs and urine sent. He states he will agree to having some Tylenol and some warm room temperature water but not ice water. TRAVEL OUTSIDE OF THE [place] IN LAST 30 DAYS: No - HPI Patient complains to provider of: Pain, Upper back Onset: Last week Where: Other - Patient was discharged from the hospital on May 03 for rhabdomyolysis Onset: Gradual Timing: Waxing and waning Quality of pain: Achy Severity: Moderate Pain Level: 3 Context: Bending Associated symptoms: Lower back pain Exacerbated by: Movement of trunk Relieved by: Nothing Similar symptoms previously: Yes Recently seen / treated by doctor: Yes - Related Data Allergies/Adverse Reactions: No Known Allergies Allergy (Verified 05/07/17 11:30) Past Medical History - General Information source: Patient - Social History Smoking Status: Never Smoker Cigarette use (# per day): No Chew tobacco use (# tins/day): No Smoking Education Provided: No Frequency of alcohol use: None Drug Abuse: None Lives with: Family Family History: Reviewed & Not Pertinent Patient has suicidal ideation: No Patient has homicidal ideation: No - Past Medical History Cardiac Medical History: Reports: None Pulmonary Medical History: Reports: None EENT Medical History: Reports: None Neurological Medical History: Reports: None Endocrine Medical History: Reports: None Renal/ Medical History: Reports: Other - Rhabdomyolysis last week Malignancy Medical History: Reports None GI Medical History: Reports: None Musculoskeltal Medical History: Reports None Skin Medical History: Reports None Psychiatric Medical History: Reports: Hx Bipolar Disorder, Hx Schizophrenia Traumatic Medical History: Reports: None Infectious Medical History: Reports: None Surgical Hx: Negative Past Surgical History: Reports: None - Immunizations Immunizations up to date: Yes Hx Diphtheria, Pertussis, Tetanus Vaccination: Yes Review of Systems - Review of Systems Constitutional: No symptoms reported EENT: No symptoms reported Cardiovascular: No symptoms reported Respiratory: No symptoms reported Gastrointestinal: No symptoms reported Genitourinary: No symptoms reported Male Genitourinary: No symptoms reported Musculoskeletal: Muscle pain, Muscle stiffness Skin: No symptoms reported Hematologic/Lymphatic: No symptoms reported Neurological/Psychological: No symptoms reported -: Yes All other systems reviewed and negative Physical Exam - Vital signs Vitals: Temp Pulse Resp BP Pulse Ox 99.1 F 109 H 14 120/81 96 05/07/17 11:28 05/07/17 11:28 05/07/17 11:28 05/07/17 11:28 05/07/17 11:28 Interpretation: Normal - General General appearance: Appears well, Alert - HEENT Head: Normocephalic, Atraumatic Eyes: Normal Pupils: PERRL - Respiratory Respiratory status: No respiratory distress Chest status: Nontender Breath sounds: Normal Chest palpation: Normal - Cardiovascular Rhythm: Regular Heart sounds: Normal auscultation Murmur: No - Abdominal Inspection: Normal Distension: No distension Bowel sounds: Normal Tenderness: Nontender Organomegaly: No organomegaly - Back Back: Normal, Tender - Buttocks pain - Extremities General upper extremity: Normal inspection, Nontender, Normal color, Normal ROM , Normal temperature General lower extremity: Normal inspection, Nontender, Normal color, Normal ROM , Normal temperature, Normal weight bearing. No: Karen's sign - Neurological Neuro grossly intact: Yes Cognition: Normal Orientation: AAOx4 Tin Coma Scale Eye Opening: Spontaneous Hodges Coma Scale Verbal: Oriented Tin Coma Scale Motor: Obeys Commands Tin Coma Scale Total: 15 Speech: Normal Motor strength normal: LUE, RUE, LLE, RLE Sensory: Normal - Psychological Associated symptoms: Normal affect, Normal mood - Skin Skin Temperature: Warm Skin Moisture: Dry Skin Color: Normal Course - Re-evaluation Re-evalutation: 05/07/17 13:59 Labs are all back within normal limits. Will give discharge patient home to follow-up with primary doctor. Patient instructed use Tylenol or Motrin for his back pain. - Vital Signs Vital signs: Temp Pulse Resp BP Pulse Ox 99.1 F 109 H 14 120/81 96 05/07/17 11:28 05/07/17 11:28 05/07/17 11:28 05/07/17 11:28 05/07/17 11:28 - Laboratory Result Diagrams: 05/07/17 12:32 05/07/17 12:32 Laboratory results interpreted by me: 05/07/17 05/07/17 12:32 12:40 RDW 14.6 H Urine Ketones TRACE H Urine Urobilinogen 2.0 H Discharge - Discharge Clinical Impression: Myalgia Condition: Stable Disposition: HOME, SELF-CARE Instructions: Family Physicians / Practices Additional Instructions: Myalagia (Muscle Pain) Myalgia is pain in the muscles. We use the word myalgia to describe muscle pain where there's no history of injury, no known muscle disease, and the muscles are normal to examination. Myalgias can be a symptom of an acute illness , such as influenza, hepatitis, or any viral illness, especially with fever. Sometimes the muscle pain comes before any other symptoms. Myalgia can also be an early symptom of inflammatory muscle disease, such as lupus. If myalgia is accompanied by an acute illness that explains the muscle pain , then no further testing needs to be done. When there's no clear reason for the pain, tests may be done to see if there's an inflammatory or other disease of the muscles. The usual treatment for myalgias is anti-inflammatory medication, such as ibuprofen. Muscle aches may be soothed with a heating pad or hot compress. If muscles remain painful for more than a few days, you'll need testing and followup. Return if a muscle becomes swollen, red, or severely painful. Acetaminophen Acetaminophen may be taken for pain relief or fever control. It's much safer than aspirin, offering a wider range of "safe" dosages. It is safe during . Some brand names are Tylenol, Panadol, Datril, Anacin 3, Tempra, and Liquiprin. Acetaminophen can be repeated every four hours. The following are maximum recommended dosages: WEIGHT Dose Drops Elixir Chewable( 80mg) (LBS.) drprs=droppers tsp=teaspoon 6 40 mg .4 ml (1/2) 6-11 80 mg .8 ml (full) 1/2 tsp 1 tab 12-16 120 mg 1 1/2 drprs 3/4 tsp 1 1/2 tabs 17-23 160 mg 2 drprs 1 tsp 2 tabs 24-30 240 mg 3 drprs 1 1/2 tsp 3 tabs 30-35 320 mg 2 tsp 4 tabs 36-41 360 mg 2 1/4 tsp 4 1 /2 tabs 42-47 400 mg 2 1/2 tsp 5 tabs 48-53 480 mg 3 tsp 6 tabs 54-59 520 mg 3 1/4 tsp 6 1 /2 tabs 60-64 560 mg 3 1/2 tsp 7 tabs 65-70 600 mg 3 3/4 tsp 7 1 /2 tabs 71-76 640 mg 4 tsp 8 tabs 77-82 720 mg 4 1/2 tsp 9 tabs 83-88 800 mg 5 tsp 10 tabs >89 pounds or adults 650 mg to 900 mg Acetaminophen can be repeated every four hours. Maximum daily dose not to exceed 4000 mg. These maximum recommended dosages are slightly higher than the dosages written on the product container, but these dosages are very safe and well below the toxic dosage for acetaminophen. Continue you to drink plenty of water up to 2 L of fluids a day and follow-up with your primary doctor. Stretching Exercises for the Back The physician has recommended that you begin stretching exercises for your back. These are often used even while the back is painful. However, you should notify the physician if the activities seem to increase your pain. PELVIC TILT: Lie flat on your back with knees bent. Tighten your stomach and buttock muscles so it flattens your lower back against the floor. Hold 10 seconds. Repeat 10 times, twice daily. KNEE RAISE: Lying on the back with knees bent, raise one knee to your chest, then the other. Hold both knees against the chest 10 seconds, then lower one knee at a time. Repeat 10 times, twice daily. PARTIAL TRUNK RAISE: Lie face down, arms at your sides. Keeping your waist on the floor, use your arms raise your chest up. Support yourself on your elbows for 30 seconds. Repeat twice daily, increasing the time to two minutes as you recover. Ice Packs Apply ice packs frequently against the painful area. Many different schedules are recommended, such as "20 minutes on, 20 minutes off" or "one hour ice, two hours rest." If you need to work, you may need to go longer between ice treatments. You should plan to have the area ice packed AT LEAST one fourth of the time. The ice should be applied over the wrap, tape, or splint, or over a layer of cloth -- not directly against the skin. Some ice bags have a built-in cloth and can be put directly on the skin. Warm Packs After approximately two days, apply gentle heat (such as a heating pad or hot water bottle) for about 20 to 30 minutes about every two hours -- at least four times daily. Warmth and elevation will help you make a more rapid recovery , and will ease the pain considerably. Do not use HOT heat, and never apply heat for longer than 30 minutes. The continuous heat can invisibly damage skin and muscles -- even when no burn is seen on the surface. Damaged muscles can make you MORE sore. FOLLOW-UP CARE: If you have been referred to a physician for follow-up care, call the physician s office for an appointment as you were instructed or within the next two days. If you experience worsening or a significant change in your symptoms, notify the physician immediately or return to the Emergency Department at any time for re-evaluation.
[2017-05-07 12:56] LABS: ABSOLUTE BASOPHILS # (AUTO) 0.1 10^3/uL (0.0-0.2); ABSOLUTE EOSINOPHILS # (AUTO) 0.3 10^3/uL (0.0-0.6); ABSOLUTE LYMPHOCYTES (AUTO) 1.8 10^3/uL (0.5-4.7); ABSOLUTE MONOCYTES (AUTO) 0.7 10^3/uL (0.1-1.4); ABSOLUTE NEUT (AUTO) 4.4 10^3/uL (1.7-8.2); BASOPHILS % (AUTO) 1.2 % (0-2); EOSINOPHILS % (AUTO) 4.4 % (0-6); HEMATOCRIT 41.2 % (37.9-51.0); HEMOGLOBIN 13.9 g/dL (13.5-17.0); HGB HCT DIFFERENCE 0.5; LYMPHOCYTES % (AUTO) 24.4 % (13-45); MEAN CORPUSCULAR HEMOGLOBIN 28.1 pg (27.0-33.4); MEAN CORPUSCULAR HGB CONC 33.6 g/dL (32.0-36.0); MEAN CORPUSCULAR VOLUME 84 fl (80-97); MONOCYTES % (AUTO) 9.4 % (3-13); RED BLOOD COUNT 4.94 10^6/uL (4.35-5.55); RED CELL DISTRIBUTION WIDTH 14.6 % (11.5-14.0); SEGMENTED NEUTROPHILS % (AUTO) 60.6 % (42-78); WHITE BLOOD COUNT 7.2 10^3/uL (4.0-10.5)
[2017-05-07 13:06] LABS: APPEARANCE,URINE SLIGHTLY-CLOUDY; BILIRUBIN,URINE NEGATIVE (NEGATIVE); GLUCOSE, URINE NEGATIVE (NEGATIVE); KETONES,URINE TRACE mg/dL (NEGATIVE); LEUKOCYTE ESTERASE,URINE NEGATIVE (NEGATIVE); NITRITE,URINE NEGATIVE (NEGATIVE); PROTEIN,URINE NEGATIVE (NEGATIVE)
[2017-05-07 13:10] LABS: ALANINE AMINOTRANSFERASE 64 U/L (21-72); ALBUMIN 3.8 g/dL (3.5-5.0); ALKALINE PHOSPHATASE 48 U/L (38-126); ASPARTATE AMINO TRANSFERASE 48 U/L (17-59); BILIRUBIN,DIRECT 0.4 mg/dL (0.0-0.4); BILIRUBIN,TOTAL 0.5 mg/dL (0.2-1.3); BLOOD UREA NITROGEN 17 mg/dL (7-20); CALCIUM 9.1 mg/dL (8.4-10.2); CARBON DIOXIDE 30 mmol/L (22-30); CREATININE RESULT 0.94 mg/dL (0.52-1.25); GLUCOSE 79 mg/dL (75-110); TOTAL PROTEIN 6.6 g/dL (6.3-8.2)
[2017-05-07 13:19] LABS: POTASSIUM 4.5 mmol/L (3.6-5.0); SODIUM 143.7 mmol/L (137-145)
[2017-05-07 13:21] LABS: ANION GAP 11 (5-19); CHLORIDE 103 mmol/L (98-107)
== END 2017-05-07 14:13 | disposition home or self-care (01) ==
LOC: ER 11:19
DX: M79.1 Myalgia (principal); M54.5 Low back pain
CPT/HCPCS: 99283; 36415; 82553; 85025; 80053; 81001; J3490

== ENCOUNTER → 2017-05-19 | Outpatient (CLI) | payer MEDICAID ==
[2017-05-19 11:30] LABS: ABSOLUTE BASOPHILS # (AUTO) 0.1 10^3/uL (0.0-0.2); ABSOLUTE EOSINOPHILS # (AUTO) 0.3 10^3/uL (0.0-0.6); ABSOLUTE LYMPHOCYTES (AUTO) 1.9 10^3/uL (0.5-4.7); ABSOLUTE MONOCYTES (AUTO) 0.3 10^3/uL (0.1-1.4); ABSOLUTE NEUT (AUTO) 3.1 10^3/uL (1.7-8.2); BASOPHILS % (AUTO) 1.1 % (0-2); EOSINOPHILS % (AUTO) 4.9 % (0-6); HEMATOCRIT 41.2 % (37.9-51.0); HEMOGLOBIN 13.7 g/dL (13.5-17.0); HGB HCT DIFFERENCE -0.1; LYMPHOCYTES % (AUTO) 33.6 % (13-45); MEAN CORPUSCULAR HEMOGLOBIN 27.5 pg (27.0-33.4); MEAN CORPUSCULAR HGB CONC 33.3 g/dL (32.0-36.0); MEAN CORPUSCULAR VOLUME 83 fl (80-97); MONOCYTES % (AUTO) 4.8 % (3-13); RED BLOOD COUNT 4.99 10^6/uL (4.35-5.55); RED CELL DISTRIBUTION WIDTH 15.3 % (11.5-14.0); SEGMENTED NEUTROPHILS % (AUTO) 55.6 % (42-78); WHITE BLOOD COUNT 5.5 10^3/uL (4.0-10.5)
[2017-05-19 11:54] LABS: ALANINE AMINOTRANSFERASE 36 U/L (21-72); ALBUMIN 3.8 g/dL (3.5-5.0); ALKALINE PHOSPHATASE 49 U/L (38-126); ANION GAP 8 (5-19); ASPARTATE AMINO TRANSFERASE 24 U/L (17-59); BILIRUBIN,DIRECT 0.4 mg/dL (0.0-0.4); BILIRUBIN,TOTAL 0.4 mg/dL (0.2-1.3); BLOOD UREA NITROGEN 17 mg/dL (7-20); CALCIUM 9.3 mg/dL (8.4-10.2); CARBON DIOXIDE 28 mmol/L (22-30); CHLORIDE 106 mmol/L (98-107); CREATINE KINASE 189 U/L (55-170); CREATININE RESULT 0.91 mg/dL (0.52-1.25); GLUCOSE 159 mg/dL (75-110); POTASSIUM 4.6 mmol/L (3.6-5.0); SODIUM 142.4 mmol/L (137-145); TOTAL PROTEIN 6.6 g/dL (6.3-8.2)
== END ==
LOC: OD 10:55
PROVIDERS: ATTEND Nurse Practitioner Psychiatric/Mental Health
DX: F25.0 Schizoaffective disorder, bipolar type (principal)
CPT/HCPCS: 36415; 80053; 82550; 85025